=== PATIENT | male | born 1985 | race Caucasian/White ===

== ENCOUNTER 2021-08-09 12:54 | Emergency (ER) | payer MEDICAID, SELFPAY ==
[2021-08-09 13:02] VITALS: BP 123/79; PULSE 91; RESP 18; TEMP 36.7; O2SAT 99; BMI 25.8
--- NOTE | 2021-08-09 13:36 | ED_ITS ---
HPI - Alcohol General Chief Complaint: ETOH/Substance Use Stated Complaint: detox Time Seen by Provider: 08/09/21 13:26 Source: patient Mode of arrival: ambulatory Limitations: no limitations History of Present Illness HPI narrative: 35 y/o male with history of polysubstance abuse presents to the ER for detox. He reports he wants to stop using alcohol, cocaine, fentanyl, heroin and xanax. He used all of these substances in the last 24 hours. He denies and signs or symptoms of acute withdrawal at this time. He contacted [facility] for detox but they told him he needed to get medical clearance and initiation of [facility] before he could go there for treatment. Patient reports ongoing drug and alcohol abuse since he was about 10 years old. He has been using and selling drugs since then. His drugs of choice at this time are cocaine and alcohol. He admits to cutting his cocaine with fentanyl. He has never been to detox before. MD complaint: desires rehab and medical clearance for detox facility Last drink: Hours (ago) Chronic alcohol use: Yes Previous visits for alcohol intoxication: No Recent trauma: No Associated symptoms: denies other symptoms Treatments prior to arrival: none Related Data Allergies Allergy/AdvReac Type Severity Reaction Status Date / Time No Known Allergies Allergy Verified 08/09/21 13:01 Review of Systems Review of Systems: Constitutional: No Fever, No Chills ENT/Mouth: No sore throat, No Rhinorrhea, No Swallowing Difficulty Cardiovascular: No Chest Pain, No SOB, No Orthopnea, No Edema Respiratory: No Cough, No Sputum, No Wheezing, No dyspnea Gastrointestinal: No Nausea, No Vomiting, No Diarrhea, No abdominal Pain Genitourinary: No Dysuria, No Urinary Frequency, No Hematuria Musculoskeletal: No joint pain, No Myalgias Skin: No Skin Lesions, No rash Neuro: No Weakness, No Numbness, No Dizziness, No Headache Psych: + Anxiety/Panic, + Depression Heme/Lymph: No Bruising, No Lymphadenopathy Endocrine: No Polyuria, No Polydipsia PMFSH Social History Social History Alcohol intake: current Patient Tobacco Use Status: Current everyday Tobacco user Use of substances other than those prescribed or required for medical reasons: Yes Advance Directives: No Advance Directives Information Provided: No Physical Exam ED Vital Signs: Vital Signs - 24 hr 08/09/21 13:02 Temperature 98.0 F Pulse Rate 91 Respiratory Rate 18 Blood Pressure 123/79 Pulse Oximetry 99 BMI result Body Mass Index 25.8 Appearance: Alert. Oriented X3. No acute distress. Eyes: Pupils equal, round and reactive to light. ENT: Pharynx normal. Neck: Normal inspection. Neck supple. CVS: Normal heart rate and rhythm. Pulses normal. Respiratory: No respiratory distress. Breath sounds normal. Abdomen: Soft and non-tender. +BS x4 Skin: Skin warm and dry. Normal skin color. Normal skin turgor. No rashes. Extremities: No lower extremity edema. No track king. Neuro/psych: Oriented X 3. No motor deficit. No sensory deficit. CN II-XII intact Course Course Course Narrative: 35-year-old male with history of polysubstance abuse for the last 20-25 years who has never been to detox presents to the ER today wishing to stops all substances. He reports he last used earlier today. He is awake alert cooperative, somewhat hyperverbal may be under the influence of cocaine. Basic lab workup, U tox an ethanol level are pending. He is very appreciative of care and would like to go to detox. Reevaluation(s) Reevaluation #1: Patient's lab workup is unremarkable. His COVID is negative. He remains, cooperative, and appreciative of care. His U tox is positive for cocaine, his alcohol level is 51. Referrals were put out to several detox facilities and the care team was able to get him accepted at [facility]. They are waiting to hear if he can go on a ?scholarship?. Waiting to hear back from them. Reevaluation #2: Patient has been accepted and has gotten a scholarship. He has a bed in their expecting him this evening. His brother will drive him the 2 hours away directly to the facility for treatment. Patient is stable for discharge from the emergency room with plan to go directly to [facility] for [facility] and treatment. MDM - Alcohol Lab Data Result diagrams: 08/09/21 13:56 08/09/21 13:56 Labs: Lab Results 08/09/21 08/09/21 08/09/21 Range/Units 13:56 13:56 13:56 WBC 8.5 (4.8-10.8) X10*3/uL RBC 5.34 (4.60-5.80) X10*6/uL Hgb 16.0 (14.0-18.0) g/dl Hct 48.5 (42.0-52.0) % MCV 90.8 (80.0-98.0) fL MCH 30.0 (27.0-33.0) pg MCHC 33.0 (31.0-36.0) g/dl RDW 13.2 (11.0-16.0) % Plt Count 256 (160-400) X10*3/uL MPV 10.4 (9.4-12.4) fL Immature Gran % (Auto) 1.1 H (0.0-0.4) % Neut % (Auto) 61.3 (45-73) % Lymph % (Auto) 21.2 (20-40) % [place] % (Auto) 8.5 (2-11) % Eos % (Auto) 7.0 H (0-4) % Baso % (Auto) 0.9 (0-2) % Lymph # (Auto) 1.8 (1.2-4.9) X10*3/uL [place] # (Auto) 0.7 (0.1-1.2) X10*3/uL Eos # (Auto) 0.6 H (0.0-0.4) X10*3/uL Baso # (Auto) 0.1 (0.0-0.2) X10*3/uL Abs Immat Gran (auto) 0.09 H (0.00-0.03) X10*3/uL Absolute Neuts (auto) 5.2 (2.0-8.3) x10*3/uL Absolute Nucleated RBC 0.000 (0.0-0.012) X10*3/uL Nucleated RBC % (auto) 0.0 (0.0-0.2) /100WBC Sodium 143 (135-145) mmol/L Potassium 3.8 (3.3-5.1) mmol/L Chloride 109 H (96-108) mmol/L Carbon Dioxide 25 (22-29) mmol/L Anion Gap 13 (12-20) BUN 12 (9-16) mg/dL Creatinine 1.07 (0.5-1.4) mg/dL Estim Creat Clear Calc 103.7 Estimated GFR > 60 Random Glucose 78 (60-115) mg/dL Calcium 9.6 (8.4-10.2) mg/dL Magnesium 2.2 (1.6-2.6) mg/dL Total Bilirubin 0.4 (0.0-1.0) mg/dL Direct Bilirubin < 0.2 (0.0-0.5) mg/dL AST 16 (5-37) U/L ALT 14 (0-40) U/L Alkaline Phosphatase 110 (39-117) U/L Total Protein 7.3 (6.5-8.0) g/dL Albumin 4.6 (3.5-5.0) g/dL Urine Opiates Screen (Not Detect) Urine Fentanyl Screen (Not Detect) Ur Barbiturates Screen (Not Detect) Ur Phencyclidine Scrn (Not Detect) Ur Amphetamines Screen (Not Detect) U Benzodiazepines Scrn (Not Detect) Urine Cocaine Screen (Not Detect) U Marijuana (THC) Screen (Not Detect) Ethyl Alcohol mg/dL COVID-19 (BRETT) Negative (Negative) COVID-19 Clin Com See Note 08/09/21 08/09/21 Range/Units 13:56 13:56 WBC (4.8-10.8) X10*3/uL RBC (4.60-5.80) X10*6/uL Hgb (14.0-18.0) g/dl Hct (42.0-52.0) % MCV (80.0-98.0) fL MCH (27.0-33.0) pg MCHC (31.0-36.0) g/dl RDW (11.0-16.0) % Plt Count (160-400) X10*3/uL MPV (9.4-12.4) fL Immature Gran % (Auto) (0.0-0.4) % Neut % (Auto) (45-73) % Lymph % (Auto) (20-40) % [place] % (Auto) (2-11) % Eos % (Auto) (0-4) % Baso % (Auto) (0-2) % Lymph # (Auto) (1.2-4.9) X10*3/uL [place] # (Auto) (0.1-1.2) X10*3/uL Eos # (Auto) (0.0-0.4) X10*3/uL Baso # (Auto) (0.0-0.2) X10*3/uL Abs Immat Gran (auto) (0.00-0.03) X10*3/uL Absolute Neuts (auto) (2.0-8.3) x10*3/uL Absolute Nucleated RBC (0.0-0.012) X10*3/uL Nucleated RBC % (auto) (0.0-0.2) /100WBC Sodium (135-145) mmol/L Potassium (3.3-5.1) mmol/L Chloride (96-108) mmol/L Carbon Dioxide (22-29) mmol/L Anion Gap (12-20) BUN (9-16) mg/dL Creatinine (0.5-1.4) mg/dL Estim Creat Clear Calc Estimated GFR Random Glucose (60-115) mg/dL Calcium (8.4-10.2) mg/dL Magnesium (1.6-2.6) mg/dL Total Bilirubin (0.0-1.0) mg/dL Direct Bilirubin (0.0-0.5) mg/dL AST (5-37) U/L ALT (0-40) U/L Alkaline Phosphatase (39-117) U/L Total Protein (6.5-8.0) g/dL Albumin (3.5-5.0) g/dL Urine Opiates Screen Not Detected (Not Detect) Urine Fentanyl Screen Not Detected (Not Detect) Ur Barbiturates Screen Not Detected (Not Detect) Ur Phencyclidine Scrn Not Detected (Not Detect) Ur Amphetamines Screen Not Detected (Not Detect) U Benzodiazepines Scrn Not Detected (Not Detect) Urine Cocaine Screen POSITIVE H (Not Detect) U Marijuana (THC) Screen Not Detected (Not Detect) Ethyl Alcohol 51 mg/dL COVID-19 (BRETT) (Negative) COVID-19 Clin Com Critical Care Time Critical Care Time Critical Care Time: No Discharge Plan Discharge Clinical Impression: Polysubstance abuse Patient Disposition: Home, Self-Care Instructions: Polysubstance Abuse (ED) Additional Instructions: Your lab workup today was unremarkable. You are negative for COVID-19. Upon discharge from the emergency room present directly to [facility] for detox and treatment. You have a bed and they are expecting you tonight. Good luck!
[2021-08-09 14:03] LABS: MANUAL DIFF FLAG NO
[2021-08-09 14:07] LABS: Basophils Absolute Auto 0.1 X10*3/uL (0.0-0.2); Basophils Percent Auto 0.9 % (0-2); Eosinophils Absolute Auto 0.6 X10*3/uL (0.0-0.4); Hematocrit 48.5 % (42.0-52.0); Imm Gran Abs Auto 0.09 X10*3/uL (0.00-0.03); Imm Gran Pct Auto 1.1 % (0.0-0.4); Lymphocytes Absolute Auto 1.8 X10*3/uL (1.2-4.9); Lymphocytes Percent Auto 21.2 % (20-40); Mean Corpuscular Volume 90.8 fL (80.0-98.0); Mean Platelet Volume 10.4 fL (9.4-12.4); Monocytes Absolute Auto 0.7 X10*3/uL (0.1-1.2); Monocytes Percent Auto 8.5 % (2-11); Neutrophils Absolute Auto 5.2 x10*3/uL (2.0-8.3); Neutrophils Percent Auto 61.3 % (45-73); Platelet Count 256 X10*3/uL (160-400); Red Blood Count 5.34 X10*6/uL (4.60-5.80); Red Cell Distribution Width 13.2 % (11.0-16.0); White Blood Count 8.5 X10*3/uL (4.8-10.8)
[2021-08-09 14:21] LABS: Ethanol 51 mg/dL
[2021-08-09 14:22] LABS: Amphetamine Screen Urine Not Detected (Not Detect); Barbiturates, Urine Not Detected (Not Detect); Benzodiazepines Screen Urine Not Detected (Not Detect); COVID-19 Test Negative (Negative); Cannabinoid Screen Urine Not Detected (Not Detect); Cocaine Screen Urine POSITIVE (Not Detect); Fentanyl, urine Not Detected (Not Detect); Opiate Screen Urine Not Detected (Not Detect); Phencyclidine Screen Urine Not Detected (Not Detect)
[2021-08-09 14:23] LABS: Alanine Aminotransferase 14 U/L (0-40); Albumin Level 4.6 g/dL (3.5-5.0); Alkaline Phosphatase 110 U/L (39-117); Anion Gap 13 (12-20); Aspartate Amino Transferase 16 U/L (5-37); Bilirubin Direct < 0.2 mg/dL (0.0-0.5); Bilirubin Total 0.4 mg/dL (0.0-1.0); Blood Urea Nitrogen 12 mg/dL (9-16); Calcium 9.6 mg/dL (8.4-10.2); Carbon Dioxide 25 mmol/L (22-29); Chloride 109 mmol/L (96-108); Creatinine Clr Calc Pharmacy 103.7; Estimated Glomerular Filt Rate > 60; Glucose Random 78 mg/dL (60-115); Magnesium 2.2 mg/dL (1.6-2.6); Potassium 3.8 mmol/L (3.3-5.1); Sodium 143 mmol/L (135-145); Total Protein 7.3 g/dL (6.5-8.0)
--- NOTE | 2021-08-09 14:46 | PC.NURSE ---
pt has been seen by provider and care team. Will continue to monitor.
--- NOTE | 2021-08-09 14:51 | PC.NURSE ---
pt denies any increase withdrawal symptoms. He resting in recliner.
--- NOTE | 2021-08-09 15:33 | MHC.CARE ---
CARE Team met with Pt who is requesting helping getting into detox. Pt reports ongoing alcohol and cocaine use for the past 20 years. He reports no formal substance use interventions. Pt reports wanting to get into treatment. CARE Team spoke with [facility] who have no beds today. CARE Team called [facility] regarding possible scholarship for treatment and waiting return call. CARE Team notified ED provider.
--- NOTE | 2021-08-09 19:03 | MHC.CARE ---
Bita Marrero of [facility] ([phone]) called CARE Team and said that pt would be accepted for ATS with the scholarship. Pt completed a phone intake and pt's brother offered to drive pt to the [facility]. CARE Team spoke with KATHLEEN Corrales, who is in agreement with this plan.
== END 2021-08-09 19:41 | disposition home or self-care (01) ==
PROVIDERS: Physician Assistant; Emergency Provider Emergency Medicine
DX: Z02.2 Encounter for examination for admission to residential institution (principal); F19.10 Other psychoactive substance abuse, uncomplicated; F10.10 Alcohol abuse, uncomplicated; Y90.2 Blood alcohol level of 40-59 mg/100 ml; Z20.822 Contact with and (suspected) exposure to COVID-19; F41.9 Anxiety disorder, unspecified; F32.A Depression, unspecified; F17.200 Nicotine dependence, unspecified, uncomplicated
CPT/HCPCS: 80048; 80076; 80307; 82077; 83735; 85025; 87635; 99284